=== PATIENT | male | born 2000 | race Caucasian/White ===

== ENCOUNTER 2021-02-18 18:11 | Emergency (ER) | payer MEDICAID, SELFPAY ==
[2021-02-18 18:12] VITALS: BP 150/98; PULSE 101; RESP 16; TEMP 37; O2SAT 98; BMI 20.2
[2021-02-18] MEDS: Morphine 4 MG/ML Syringe IV (18:36)
[2021-02-18] MEDS: Ondansetron 4 MG/2 ML Vial IV (18:36)
[2021-02-18] MEDS: Ketorolac 15 MG/ML Vial IV (18:37)
--- NOTE | 2021-02-18 18:53 | US_ITS ---
STUDY: SCROTUM ULTRASOUND REASON FOR EXAM: Male, 20 years old. BILAT SWELLING AND PAIN WITH URINATION TECHNIQUE: Ultrasound evaluation of the scrotum was performed with color Doppler and static tam-scale imaging. COMPARISON: None. FINDINGS: RIGHT TESTICLE INTRATESTICULAR: There is a normal size of the right testicle. The right testicle measures 4.3 x 2.8 cm. There is a homogenous echotexture. There is normal arterial and normal venous vascularity. There is a hypoechoic 4 mm demonstrated right testicular mass or cyst. 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 EXTRATESTICULAR: The epididymis is normal in size. The epididymis head measures 1.1 cm. There is normal vascularity of the epididymis. There is a well-defined cystic structure within the epididymis, without internal echoes, consistent with an epididymal cyst. This measures 2.5 x3.6mm. There is no demonstrated hydrocele. There is no demonstrated varicocele. There is no demonstrated extratesticular mass or cyst. LEFT TESTICLE INTRATESTICULAR: There is a normal size of the left testicle. The left testicle measures 3.9 x 2 .8 cm. There is a homogenous echotexture. There is normal arterial and normal venous vascularity. There is no demonstrated left testicular mass or cyst. EXTRATESTICULAR: The epididymis is normal in size. The epididymis head measures 0.8 cm. There is normal vascularity of the epididymis. There is no demonstrated epididymal cystic structure. There is no demonstrated hydrocele. There is no demonstrated varicocele. There is no demonstrated extratesticular mass or cyst. US/Testicular with Arterial Flow IMPRESSION: No evidence for testicular torsion. Right epididymal cyst. There is a hypoechoic 4 mm demonstrated right testicular mass or cyst. 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 Follow up studies advised. Electronically Signed: Harshad Hernandez MD at 20:15 EST , Service support ,
[2021-02-18 19:17] LABS: Bacteria 0 SEEN /hpf (None Seen); Mucous, Urine 0 SEEN /hpf (<or=2+); Red Blood Cells-Urine 0 SEEN /hpf (0-5); Squamous Epithelial Cells - UA 0 SEEN /hpf (0-5)
--- NOTE | 2021-02-18 19:18 | EDS_ITS ---
HPI History of Present Illness Chief Complaint: Male Pain/Injury Narrative Narrative: 20-year-old male presenting with testicular pain for 2 to 3 days. He denies any trauma. He states that they're more swollen than usual. Patient states that his testicles burn when he urinates. He denies any urethral drainage. He does not have concern for STD. He has not had any rashes. PFSH PFSH Medical History no medical history Home Medications naproxen 500 mg PO BID PRN PRN #20 tab 03/18/13 [Rx Last Taken Unknown] penicillin V potassium 500 mg PO 4X/DAY #40 tab 03/18/13 [Rx Last Taken Unknown] cyclobenzaprine 5 mg PO TID PRN PRN #10 tablet 02/16/15 [Rx Last Taken Unknown] Allergy/AdvReac Type Severity Reaction Status Date / Time No Known Allergies Allergy Verified 02/18/21 18:12 Surgical History no surgical history Social History Smoking Status: Never smoker ROS ROS ED Constitutional Constitutional ED: Denies chills, fever(s) or sweats Eyes Eyes: Denies blurry vision or change in vision ENT ENT ED: Denies ear pain or sore throat Cardiovascular Cardiovascular: Denies chest pain, palpitations or racing heartbeat Respiratory/Chest Respiratory/Chest: Denies cough, dyspnea or sputum Gastrointestinal Gastrointestinal: Denies abdominal pain, constipation, diarrhea, nausea or vomiting Genitourinary Genitourinary ED: Reports other Details: Testicular pain and swelling ; Denies dysuria, hematuria or testicular mass Musculoskeletal Musculoskeletal: Denies arthralgias, myalgias or neck pain Integumentary Denies abscess, Abrasions or rash Neurologic Neurologic: Denies headache(s), paresthesias or weakness Psychiatric Psychiatric: Denies anxiety, depression, suicidal ideation or suicidal thoughts Endocrine Endocrinology: Denies polydipsia or polyuria EXAM Physical Exam Const Vital Signs: 02/18/21 18:12 02/18/21 20:33 Temperature 98.6 F Temperature Source Temporal Pulse Rate 101 H Respiratory Rate 16 18 Blood Pressure 150/98 H Blood Pressure Mean 115 Pulse Ox 98 Oxygen Delivery Method Room Air Positive well nourished General Appearance ED: NAD; Negative for pallor HEENT Reports normocephalic, head/scalp atraumatic and moist mucous membranes Eyes PERRL and EOMs intact bilaterally Neck no lymphadenopathy and supple Chest Wall inspection of chest normal and palpation of chest normal Resp normal respiratory effort and clear to auscultation bilaterally Auscultation: Negative for rales, rhonchi or wheezes Cardio regular rate and regular rhythm GI normal to inspection, nondistended, normoactive bowel sounds and non-distended Auscultation: normoactive bowel sounds Palpation: soft Narrative: Deferred Penis: normal penis; Negative for ecchymosis, edematous, erythema or mass Meatus: meatus normal; Negative for meatal discharge or blood at meatus Scrotum: testes descended bilaterally, cremasteric reflex present, tenderness and scrotal swelling bilateral Testes: testicular lie normal; Negative for testicular mass, blue dot sign or high-riding testicle Extremity normal to inspection General Extremety ED: Yes edema and tenderness General Extremity: edema Neuro oriented x3 and CN's II-XII intact bilaterally Sensorium / Orientation: alert Motor Exam: strength 5/5 throughout Psych mental status grossly normal Attitude: No agitated Skin no rashes or lesions noted and no wounds General Skin Exam: Negative for jaundice or pallor MDM MDM MDM Narrative Medical decision making narrative: Patient presented with testicular pain. There is no evidence of torsion based on my examination. He does have tenderness in the epididymal region. This is however bilateral. He became very tearful after I touched his testicles. I did order urinalysis which is negative for infection and blood. GC and Chlamydia were negative. I had an IV started because I wanted to make sure I treated his pain since it seemed to be very bad on his testicular exam and he did also become tearful about his IV. He was given morphine and Toradol and his pain is improved currently. Ultrasound of the testicles does not show any evidence of torsion. There is a right epididymal cyst which the radiologist reads as having a 4 mm hypoechoic region of testicular mass versus cyst. Given this I will have the patient follow-up with urology. Patient was counseled on alternating Tylenol and ibuprofen. He is given return precautions. Impression: 1. Right epididymal cyst 2. Right testicular mass versus Lab Data Attestation: I reviewed the patient's lab results. Labs: Laboratory Results - last 24 hr 02/18/21 02/18/21 19:12 19:12 Urine Color Yellow Urine Clarity Cloudy Urine pH 7.0 Ur Specific [place] 1.015 Urine Protein Negative Urine Glucose (UA) Normal Urine Ketones Negative Urine Occult Blood Negative Urine Nitrite Negative Urine Bilirubin Negative Urine Urobilinogen 4 H Ur Leukocyte Esterase 25 H Urine RBC 0 SEEN Urine WBC 0-5 SEEN Ur Squamous Epith Cells 0 SEEN Amorphous Sediment 4+ Urine Bacteria 0 SEEN Urine Mucus 0 SEEN Chlam trachomat DNA PCR Negative N.gonorrhoeae DNA (PCR) Negative Radiography Diagnostic Testing: Clinical Impression(s) from Imaging Studies Testicular Ultrasound 02/18/21 18:53 IMPRESSION: No evidence for testicular torsion. Right epididymal cyst. There is a hypoechoic 4 mm demonstrated right testicular mass or cyst. 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 Follow up studies advised. Electronically Signed: Harshad Hernandez MD at 20:15 EST , Service support , Discharge Plan Triage Chief Complaint: Male Pain/Injury ED Provider: Harry North Dx/Rx/DC Orders Prescriptions: No Action penicillin V potassium 250 MG tablet 500 mg PO 4X/DAY Qty: 40 RF: 0 naproxen 500 MG tablet 500 mg PO BID PRN PRN (Reason: Pain) Qty: 20 RF: 0 cyclobenzaprine 10 MG tablet 5 mg PO TID PRN PRN (Reason: Spasms) Qty: 10 RF: 0 Primary Care Provider: Care Physician,No Primary Referrals: Taras Neff MD [STAFF PHYSICIAN] - 3-5 Days Care Physician,No Primary [Primary Care Provider] - Activity Restrictions/Additional Instructions: You have an epididymal cyst on the right testicle. You will need to follow-up with urology for this. You should alternate Tylenol and ibuprofen. Urinalysis was normal today. Disposition Disposition: Home, Self Care
[2021-02-18 19:24] LABS: Color, Urine Yellow (Yellow); Glucose, Dipstick Normal (Normal); Ketone-Dipstick Negative (Negative); Leukocyte Esterase-Dipstick 25 /ul (Negative); Nitrite-Dipstick Negative (Negative); Occult Blood-Urine Negative /ul (Negative); Protein-Dipstick Negative (Negative); Specific Gravity, Urine 1.015 (1.002-1.030); Urine Bilirubin Dipstick Negative (Negative); Urine Clarity Cloudy (Clear); Urine Urobilinogen 4 mg/dl (Normal)
[2021-02-18 19:31] LABS: Amorphous Sediment 4+; White Blood Cells 0-5 SEEN /hpf (0-5)
[2021-02-18 20:33] VITALS: RESP 18
[2021-02-18 21:03] LABS: Chlamydia Trachomatis by PCR Negative (Negative); Neisserai gonorrhoeae by PCR Negative (Negative); Probe Check PASS; Sample Adequacy Control PASS; Specimen Processing Control PASS
== END 2021-02-18 21:18 | disposition home or self-care (01) ==
PROVIDERS: Emergency Provider Student in an Organized Health Care Education/Training Program; Visit Provider Student in an Organized Health Care Education/Training Program
DX: N50.3 Cyst of epididymis (principal); N50.89 Other specified disorders of the male genital organs
CPT/HCPCS: 76870; 81001; 87491; 87591; 93976; 96374; 96375; 99283; A4216; J2405

== ENCOUNTER 2022-07-25 23:26 | Emergency (ER) | payer MEDICAID, SELFPAY ==
[2022-07-25 23:27] VITALS: BP 163/100; PULSE 128; RESP 16; TEMP 35.8; O2SAT 99; BMI 22.5
--- NOTE | 2022-07-25 23:44 | EDS_ITS ---
HPI History of Present Illness Chief Complaint: Other, Pain/Inj Detail of Chief Complaint: Right-sided neck pain after sleeping on it wrong. Informant: patient Onset/Context/Timing Onset: Days Context: Gradual Onset Timing: Continuous Current Severity: Mild Maximum Severity: Mild Narrative Narrative: 21-year-old male says that he slept on a couch wrong and has had right-sided neck discomfort about a week. Said massage helped it but he still has a discomfort. Worse with movement. Denies any fall or trauma. No prior neck surgery. No fever. Prior similar symptoms: No Recent Illness/Hospitalization: No PFSH PFSH Medical History no medical history no medical history Home Medications naproxen 500 mg tablet 500 mg PO BID PRN PRN Pain #20 tabs 03/18/13 [Rx Last Taken Unknown] penicillin V potassium 250 mg tablet 500 mg PO 4X/DAY #40 tabs 03/18/13 [Rx Last Taken Unknown] cyclobenzaprine 10 mg tablet 5 mg PO TID PRN PRN Spasms ##10 02/16/15 [Rx Last Taken Unknown] metaxalone 800 mg tablet 800 mg PO TID 7 days #21 tabs 07/25/22 [Rx Last Taken Unknown] Allergy/AdvReac Type Severity Reaction Status Date / Time No Known Allergies Allergy Verified 07/25/22 23:27 Surgical History no surgical history no surgical history Social History Smoking Status: Never smoker ROS ROS ED ROS Narrative Musculoskeletal neck pain. No illness. Review of Systems ROS Unobtainable: Denies due to encephalopathy Constitutional Constitutional ED: Denies chills or fever(s) Eyes Eyes: Denies blurry vision ENT ENT ED: Denies ear pain Cardiovascular Cardiovascular: Denies chest pain Respiratory/Chest Respiratory/Chest: Denies cough or dyspnea Gastrointestinal Gastrointestinal: Denies abdominal pain Genitourinary Genitourinary ED: Denies dysuria or hematuria Musculoskeletal Musculoskeletal: Reports neck pain; Denies arthralgias Integumentary Denies abscess or Abrasions Neurologic Neurologic: Denies headache(s) Psychiatric Psychiatric: Denies anxiety or depression Endocrine Endocrinology: Denies cold intolerance Hematologic/Lymphatic Hematologic/Lymphatic: Reports none Allergic/Immunologic Allergic/Immunologic ED: Denies mouth swelling or tongue swelling EXAM Physical Exam Narrative Exam Narrative: 21-year-old male no acute distress. Vital signs stable afebrile. He is sitting upright in bed. Clinically looks well. H EENT exam unremarkable. Neck right- sided neck soft tissue tenderness consistent with myofascial strain and spasm. There is no lymphadenopathy. Trachea midline. No meningismus. He can do full flexion extension of his neck. Rotating his head to the left is where he has the most discomfort. C-spine nontender. Back nontender. Lungs clear. Heart regular rhythm. Chest wall nontender. Rest of exam is benign. Normal neurologic exam. Const Vital Signs: 07/25/22 23:27 Temperature 96.4 F L Temperature Source Temporal Pulse Rate 128 H Respiratory Rate 16 Blood Pressure 163/100 H Blood Pressure Mean 121 Pulse Ox 99 Positive well nourished and well developed; Negative for obese, cachectic, contractures or unkempt General Appearance ED: well developed and NAD; Negative for unkempt, cachectic, contractures, cyanotic, diaphoretic or pallor Nutritional Appearance: Negative for cachectic or obese HEENT Reports moist mucous membranes; Denies dry mucous membranes Negative for trauma or tenderness Mouth ED: No dry mucous membranes Mouth: No dry mucous membranes Eyes PERRL and EOMs intact bilaterally General Eye ED: Negative for pale conjunctiva or scleral icterus Neck no lymphadenopathy, supple and no JVD Neck Narrative: Tenderness right side of the soft tissue of the neck. Consistent with muscle spasm. General: tenderness Lymph Lymphatic: Negative for other Chest Wall inspection of chest normal and palpation of chest normal Chest: Negative for other Resp normal respiratory effort and clear to auscultation bilaterally Effort and Inspection: Negative for retractions Auscultation: Negative for rales, rhonchi or wheezes Cardio regular rate, regular rhythm, S1 normal heart sound, S2 normal heart sound and no murmurs Palpation: Negative for palpable S3 Rate: Negative for bradycardia Rhythm: Negative for abnormal rhythm GI normal to inspection, nondistended, normoactive bowel sounds, non-tender, non- distended and no masses; Negative for hepatosplenomegaly Inspection: Negative for abdominal distention Palpation: soft; Negative for tender or guarding Bladder / Kidney Exam: No other Back/Spine no CVA tenderness General Back: Negative for CVA tenderness Cervical Spine: Negative for cervical spine tenderness Thoracic Spine / Upper Back: Negative for thoracic spinal tenderness Lumbar Spine / Lower Back: Negative for lumbar spinal tenderness Extremity normal to inspection General Extremety ED: Negative for edema or tenderness General Extremity: Negative for edema Neuro oriented x3 and CN's II-XII intact bilaterally Sensorium / Orientation: alert and orientation impaired; Negative for lethargic or stuporous Motor Exam: strength 5/5 throughout Psych mental status grossly normal Appearance: Negative for unkempt Attitude: No agitated Mood & Affect: Negative for depressed, anxious or tearful Skin no rashes or lesions noted, no wounds and skin turgor normal General Skin Exam: elasticity normal; Negative for jaundice or pallor Lesions: No lesion noted Rashes: No rashes noted Trauma: Negative for abrasion Wounds: Negative for wounds noted MDM MDM MDM Narrative Medical decision making narrative: 3-year-old male no acute distress. History and exam is otherwise as from strain and spasm of his neck. He will be placed on Skelaxin. Hot Shower, warm bath, massage. Follow-up with not improving. Motrin and Tylenol. Discharge Plan Triage Chief Complaint: Other, Pain/Inj ED Provider: Serge Salinas Dx/Rx/DC Orders Clinical Impression: Muscle spasms of neck Instructions: ED Neck Spasm, No Trauma Prescriptions: New metaxalone 800 mg tablet 800 mg PO TID 7 Days Qty: 21 0RF No Action penicillin V potassium 250 MG tablet 500 mg PO 4X/DAY Qty: 40 0RF naproxen 500 MG tablet 500 mg PO BID PRN PRN (Reason: Pain) Qty: 20 0RF cyclobenzaprine 10 MG tablet 5 mg PO TID PRN PRN (Reason: Spasms) Qty: 10 0RF Primary Care Provider: Care Physician,No Primary Referrals: Brayden Sweeney MD [Med Staff - School Photograph Editor] - 1 Week if not improving Care Physician,No Primary [Primary Care Provider] - Activity Restrictions/Additional Instructions: Hot shower, warm bath and massage. Motrin and Tylenol for pain. Skelaxin the muscle laxer and 3 times a day. Should progressively improve after several days. Disposition Disposition: Home, Self Care
== END 2022-07-26 00:01 | disposition home or self-care (01) ==
LOC: ED 23:54
PROVIDERS: Emergency Provider Emergency Medicine; Visit Provider Emergency Medicine
DX: M62.838 Other muscle spasm (principal)
CPT/HCPCS: 99282

== ENCOUNTER 2022-11-26 06:21 | Emergency (ER) | payer MEDICAID, SELFPAY ==
[2022-11-26 06:22] VITALS: BP 115/94; PULSE 63; RESP 15; TEMP 35.6; O2SAT 97; BMI 22.1
--- NOTE | 2022-11-26 06:42 | CT_ITS ---
EXAM: CT MAXILLOFACIAL WITHOUT INTRAVENOUS CONTRAST CLINICAL INDICATION: injury TECHNIQUE: Helically acquired images were obtained of the face without intravenous contrast. This CT exam was performed using one or more of the following dose reduction techniques: automated exposure control, adjustment of the mA and/or kV according to patient size, and/or use of iterative reconstruction technique. RADIATION DOSE: CTDIvol = 29.38 mGy, DLP = 554.80 mGy-cm COMPARISON: No relevant prior studies available. FINDINGS: BONES/JOINTS: Unremarkable. No displaced fracture. No discrete lytic or blastic abnormalities. SOFT TISSUES: Unremarkable. No focal subcutaneous swelling. No discrete fluid collections. ORBITS: Unremarkable. Both globes are unremarkable. Extraocular muscles are normal. Retrobulbar fat appears unremarkable. SINUSES: Right maxillary sinus disease. MASTOID AIR CELLS: Unremarkable as visualized. Clear. DENTAL: Extensive dental caries throughout, as well as erosions adjacent to the roots of multiple teeth. CT/Sinus/Facial Bone IMPRESSION: No facial fractures identified. Electronically Signed: Harshad Noble MD at 7:39 EDT ,
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
--- NOTE | 2022-11-26 06:50 | RAD_ITS ---
EXAM: XR RIGHT SHOULDER COMPLETE, 2 OR MORE VIEWS CLINICAL INDICATION: pain TECHNIQUE: Two or more views of the right shoulder. COMPARISON: No relevant prior studies available. FINDINGS: BONES/JOINTS: Unremarkable. No acute fracture. No subluxation. Normal alignment. Preservation of the joint space. No sclerotic or destructive changes observed. SOFT TISSUES: Unremarkable. No soft tissue swelling or gas. No radiopaque foreign body. RAD/Shoulder min 2 Views IMPRESSION: Negative right shoulder x-rays. Electronically Signed: Harshad Noble MD at 7:37 EDT ,
[2022-11-26] MEDS: oxyCODONE 5 MG Tablet 10 MG PO (06:55)
== END 2022-11-26 08:24 | disposition home or self-care (01) ==
PROVIDERS: Emergency Provider Emergency Medicine; Visit Provider Emergency Medicine
DX: S00.83XA Contusion of other part of head, initial encounter (principal); S40.011A Contusion of right shoulder, initial encounter; B35.1 Tinea unguium; F17.210 Nicotine dependence, cigarettes, uncomplicated; Y04.8XXA Assault by other bodily force, initial encounter
CPT/HCPCS: 70486; 73030; 99282

== ENCOUNTER 2023-02-21 19:05 | Emergency (ER) | payer MEDICAID, SELFPAY ==
[2023-02-21 19:07] VITALS: BP 160/99; PULSE 128; RESP 16; TEMP 36.4; O2SAT 97; BMI 20.9
--- NOTE | 2023-02-21 19:51 | EDS_ITS ---
HPI HPI - Psych History of Present Illness Chief Complaint: Suicidal Informant: patient Onset/Context/Timing Onset: Days (2) Context: Gradual Onset Timing: Continuous Worsened by: Situational factors Relieved by: Doing drugs Associated Symptoms Associated Symptoms - Psych: Positive for Depressed, Change in Eating, Change in sleeping, Suicidal Thoughts and Auditory Hallucinations Specific plan (suicidal thought): Overdose on fentanyl Narrative Narrative: Patient presents with suicidal ideations that have been getting worse over the past 2 days. Patient states he has multiple stressors in his life. Patient states his mother has a history of cerebral aneurysms. Patient also states there was a recent in his family. Patient states that he has not been eating or sleeping as much is normal. Patient admits to some auditory hallucinations which are telling him to harm himself. Patient states he has a plan to overdose on fentanyl. [facility] Medical History (Updated 02/21/23 @ 23:[address] Tong Foote DO) Depression Home Medications NK 11/26/22 [History Last Taken Unknown] efinaconazole 10 % topical solution with applicator (Jublia) 1 applic topical DAILY 48 weeks #8 mL 11/26/22 [Rx Last Taken Unknown] oxycodone-acetaminophen 5 mg-325 mg tablet (Percocet) 1 tab PO Q6H PRN pain 3 days #12 tabs 11/26/22 [Rx Last Taken Unknown] Allergy/AdvReac Type Severity Reaction Status Date / Time No Known Allergies Allergy Verified 02/21/23 19:09 Surgical History H/O thumb surgery Social History (Updated 02/21/23 @ 20:[address] Tong Foote DO) Smoking Status: Current every day smoker tobacco type: cigarettes substance use type: opiates, IV drugs and methamphetamine ROS ROS ED Constitutional Constitutional ED: Denies chills or fever(s) Eyes Eyes: Denies blurry vision or change in vision ENT ENT ED: Denies rhinorrhea or sore throat Cardiovascular Cardiovascular: Denies chest pain or palpitations Respiratory/Chest Respiratory/Chest: Denies cough or dyspnea Gastrointestinal Gastrointestinal: Denies nausea or vomiting Genitourinary Genitourinary ED: Denies dysuria or hematuria Musculoskeletal Musculoskeletal: Denies back pain or neck pain Integumentary Denies abscess or rash Neurologic Neurologic: Denies headache(s) or weakness Psychiatric Psychiatric: Reports depression, suicidal ideation and suicidal thoughts Allergic/Immunologic Allergic/Immunologic ED: Denies mouth swelling or urticaria EXAM Physical Exam Const Vital Signs: 02/21/23 19:07 02/21/23 20:06 Temperature 97.5 F L Temperature Source Temporal Pulse Rate 128 H Respiratory Rate 16 15 Blood Pressure 160/99 H Blood Pressure Mean 119 Pulse Ox 97 Oxygen Delivery Method Room Air Room Air Positive well nourished and well developed General Appearance ED: well developed and NAD HEENT Reports moist mucous membranes Neck supple and no JVD Resp normal respiratory effort and clear to auscultation bilaterally Cardio Rate: regular rate Rhythm: regular rhythm GI non-tender and non-distended Palpation: soft Extremity normal to inspection General Extremety ED: Negative for edema or tenderness General Extremity: Negative for edema Neuro oriented x3, CN's II-XII intact bilaterally, no sensory deficits noted and deep tendon reflexes 2+ bilaterally [place] Coma Scale: document GCS findings Spontaneous Obeys Commands Oriented 15 Sensorium / Orientation: alert Motor Exam: strength 5/5 throughout Psych mental status grossly normal Attitude: calm Mood & Affect: depressed and flat affect Thought Content: suicidality and hallucination(s) Positive for auditory Attention / Concentration: attention grossly intact MDM MDM MDM Narrative Medical decision making narrative: Medical screening labs will be obtained. CBC will be obtained to assess for leukocytosis and anemia. Basic metabolic profile will be obtained to assess for electrolyte abnormality and renal function. Serum alcohol level will be obtained to assess for alcohol intoxication. Urine tox screen will be obtained to assess for substance abuse. Lab Data Attestation: I reviewed the patient's lab results. Lab results narrative: CBC was reviewed. There is a mild leukocytosis of 17.8. This is likely a stress reaction. Basic metabolic profile was reviewed and was essentially within normal limits. Serum alcohol level was reviewed and was less than 3.0. Urine tox screen was reviewed and was positive for amphetamines and cannabinoids. Labs: Laboratory Results - last 24 hr 02/21/23 02/21/23 19:55 20:10 WBC 17.8 H RBC 5.18 Hgb 15.3 Hct 46.7 MCV 90.2 MCH 29.5 MCHC 32.8 RDW Std Deviation 40.9 RDW Coeff of Nas 12.5 Plt Count 339 MPV 8.5 Immature Gran % (Auto) 0.500 Neut % (Auto) 61.4 Lymph % (Auto) 24.0 [place] % (Auto) 10.9 H Eos % (Auto) 2.4 Baso % (Auto) 0.8 Absolute Neuts (auto) 10.9 H Absolute Lymphs (auto) 4.27 Nucleated RBC % 0 Differential Comment SCANNED Diff Path Review May foll Sodium 138 Potassium 4.1 Chloride 103 Carbon Dioxide 30.0 Anion Gap 5 BUN 12 Creatinine 1.06 Estim Creat Clear Calc 89.62 Est GFR (MDRD) Af Amer 110 Est GFR (MDRD) Non-Af 91 BUN/Creatinine Ratio 11.3 Glucose 122 H Calcium 10.0 Urine Opiates Screen NEGATIVE Urine Methadone Screen NEGATIVE Ur Barbiturates Screen NEGATIVE Ur Phencyclidine Scrn NEGATIVE Ur Amphetamines Screen POSITIVE H MDMA (Ecstasy) Screen NEGATIVE U Benzodiazepines Scrn NEGATIVE Urine Cocaine Screen NEGATIVE U Cannabinoids Screen POSITIVE H Ur Drug Screen Comment Ethyl Alcohol < 3.0 Management Discussion w/another healthcare provider: Behavioral health Treatment and Re-Evaluation Narrative: Patient is medically cleared for psychiatric evaluation. Patient was evaluated by crisis. She recommended admission for inpatient treatment. I am agreeable with this. She will attempt to find a place for the patient to be admitted to. Patient understood and was agreeable with the plan. All questions were answered. Discharge Plan Triage Chief Complaint: Suicidal ED Provider: Tong Foote Dx/Rx/DC Orders Clinical Impression: Suicidal ideation, Depression Prescriptions: No Action NK oxycodone-acetaminophen [Percocet] 5-325 mg tablet 1 tab PO Q6H PRN (Reason: pain) 3 Days Qty: 12 0RF Jublia 10 % solution with applicator 1 applic topical DAILY 336 Days Qty: 8 0RF Primary Care Provider: Care Physician,No Primary Referrals: Care Physician,No Primary [Primary Care Provider] - Disposition Disposition: Psychiatric Hospital or Unit
[2023-02-21 20:06] VITALS: RESP 15
--- OUTSIDE RECORDS SUMMARY | 2023-02-21 20:29 | XMS RPT_ITS | CCD ---
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 Role Phone JANETANTONIA Unavailable Unavailable Problems Problem Classification Problem Date Documented Da te Episodic/Chronic Fracture of upper limb (1 source) Unspecified fracture of unspecified metacarpal bone, subsequent encounter for fracture with routine healing; Translations: [Unspecified fracture of unspecified metacarpal bone, subsequent encounter for fracture with routine healing] Onset: 08-05-2016 Episodic Encounters Encounter Date Encounter Type Care Provider Facility Start: 08-05-2016 End: 08-05-2016 Ambulatory [facility]TON[facility] GONZAL[facility] Summary Purpose Family History No Family History Records Found Advance Directives No Advanced Directives Records Found Additional Source Comments (unrecognized sect ion and content) No Status Records Found INFORMATION SOURCE (unrecogn ized section and content) FOR RECORDS PERTAINING TO PATIENTS WHO ARE OR HAVE BEEN ENROLLED IN A CHEMICAL DEPENDENCY/SUBSTANCEABUSE PROGRAM, SOME INFORMATION MAY BE OMITTED. This clinical summary was aggregated from multiple sources. Caution should be exercised in using it in the provision of clinical care. This summary normalizes information from multiple sources, and as a consequence, information in this document may materially change the coding, format and clinical context of patient data. In addition, data may be omitted in some cases. CLINICAL DECISIONS SHOULD BE BASED ON THE PRIMARY CLINICAL RECORDS. [employer] provides no warranty or guarantee of the accuracy or completeness of information in this document.
[2023-02-21 20:40] LABS: Alcohol, Blood (Medical)-Serum < 3.0 mg/dL
[2023-02-21 20:42] LABS: Anion Gap 5 (5-15); BUN 12 mg/dL (7-18); BUN/Creat Ratio 11.3 RATIO (10-20); Chloride 103 mmol/L (98-107); Creatinine, Serum 1.06 mg/dL (0.70-1.30); EST Glomerular Filtration Rate 91 mL/min (>60); Est Glom Filt Rate - Afr Amer 110 mL/min (>60); Estimated Creatinine Clearance 89.62 ml/min; Glucose 122 mg/dL (74-106); Potassium 4.1 mmol/L (3.5-5.1); Sodium Level 138 mmol/L (136-145)
[2023-02-21 20:43] LABS: Amphetamine Urine VISTA POSITIVE (<1000 ng/mL); Barbiturate Urine VISTA NEGATIVE (< 200 ng/mL); Benzodiazepine Urine VISTA NEGATIVE (< 200 ng/mL); Cocaine Urine VISTA NEGATIVE (< 300 ng/mL); Ecstacy Urine VISTA NEGATIVE (< 500 ng/mL); Methadone Urine VISTA NEGATIVE (< 300 ng/mL); PCP Urine VISTA NEGATIVE (< 25 ng/mL); THC Urine VISTA POSITIVE (< 50 ng/mL); Vista UDS pH Range 5
[2023-02-21 20:47] LABS: Absolute Lymphocyte Count 4.27 X10^3/uL (0.83-4.51); Absolute Neutrophil Count 10.9 X10^3/uL (2.0-7.7); Basophil# 0.15 X10^3/uL; Basophil% 0.8 % (0-1); Differential Comment SCANNED; Eosinophil# 0.43 X10^3/uL; Eosinophils% 2.4 % (0-5); Hematocrit 46.7 % (40-54); Hemoglobin 15.3 g/dL (13.0-16.5); Lymphocyte # 4.27 X10^3/ul (0.83-4.51); Mean Corp Hgb Conc 32.8 g/dL (32-36); Mean Corpuscular Hgb 29.5 pg (27.0-32.0); Mean Corpuscular Volume 90.2 fL (80-94); Mean Platelet Vol. 8.5 fl (6.2-12.0); Monocyte# 1.94 X10^3/uL; Monocyte% 10.9 % (0-10); NRBC Flagged by Analyzer 0 % (0-5); Neutrophil # 10.91 X10^3/uL (2.7-7.7); Neutrophil % 61.4 % (47-70); POSITIVE DIFFERENTIAL YES; POSITIVE MORPHOLOGY YES; Platelet Count 339 K/mm3 (150-450); RBC Distribution Width CV 12.5 % (11.6-14.6); RBC Distribution Width SD 40.9 fl (35.1-43.9); Red Blood Count 5.18 M/mm3 (4.6-6.2); White Blood Count 17.8 K/mm3 (4.4-11.0)
[2023-02-21 20:48] LABS: Differential Indicated SCAN CRITERIA MET
[2023-02-22] VITALS: RESP 15
[2023-02-22 01:00] VITALS: RESP 16
--- NOTE | 2023-02-22 01:32 | ED.RN ---
Dontae anaya calls requesting Covid/flu test. Test was order done, will fax results to [phone]. She states if these are negative that they will accept the patient.
[2023-02-22 04:00] VITALS: RESP 16
[2023-02-22 06:00] VITALS: BP 149/89; PULSE 98; RESP 16; O2SAT 97
[2023-02-22 07:03] VITALS: BP 149/89; PULSE 98; RESP 16; TEMP 36.4; O2SAT 97
[2023-02-23 09:39] LABS: Pathologist Review Reviewed
== END 2023-02-22 06:48 ==
PROVIDERS: Emergency Provider Emergency Medicine; Visit Provider Emergency Medicine
DX: R45.851 Suicidal ideations (principal); F32.A Depression, unspecified; F17.210 Nicotine dependence, cigarettes, uncomplicated
CPT/HCPCS: 80048; 80307; 80320; 85025; 87631; 99285; G0480